=== PATIENT | male | born 1975 | race Caucasian/White ===

== ENCOUNTER 2017-08-09 08:00 | Emergency (ER) | payer OTHER ==
[2017-08-09] MEDS ORDERED: METOPROLOL TARTRATE 50 MG TABLET PO STA (08:21)
--- NOTE | 2017-08-09 08:23 | ED Physician Documentation ---
History of Present Illness - Stated complaint Stated Complaint: FAST HR - Chief complaint Chief Complaint: Cardiac - History obtained from History obtained from: Patient - History of Present Illness Timing: Today - Additonal information Additional information: The patient is a 42-year-old male who presents complaining of "racing heart" that has occurred intermittently for the past 6 days. By racing heart, he defines a rate in the 90s. It started intermittently 6 days ago, was fine during the past 2 days, but then he awoke this morning with his heart racing in the 100-120 range. He denies chest pain, lightheadedness, shortness of breath, fever, cough, nausea or vomiting. He reports having history of similar symptoms intermittently in the past, for which he has undergone full cardiac workup. He was diagnosed with generalized anxiety disorder. 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 He has been on department most of the past year. He reports being in a verbal argument with his yesterday. He admits to social alcohol use, but denies the use of other drugs. He does not take any vitamins or supplements. Review of Systems Constitutional: denies: Fever, Myalgias Ears: denies: Tinnitus/ringing Nose: denies: Congestion Throat: denies: Sore throat Cardiac: reports: Palpitations. denies: Chest pain / pressure Respiratory: denies: Dyspnea, Cough GI: denies: Abdominal Pain, Nausea, Vomiting : denies: Dysuria Skin: denies: Rash Musculoskeletal: denies: Neck pain, Back pain, Extremity swelling Neurologic: denies: Focal weakness, Numbness, Altered mental status, Headache Psychiatric: reports: Anxiety PD PAST MEDICAL HISTORY - Past Medical History Past Medical History: Yes Respiratory: None Neuro: None Endocrine/Autoimmune: None GI: Other (eosinophilic esophagitis) Psych: Anxiety Other Past Medical History: eosinophillic esophagitis, costochondritis - Past Surgical History Past Surgical History: No - Present Medications Home Medications: Ambulatory Orders Medication Instructions Recorded Confirmed Esomeprazole Magnesium [Nexium] 40 mg PO DAILY 08/09/17 08/09/17 Fexofenadine/Pseudoephedrine 1 tab PO DAILY 08/09/17 08/09/17 [Bee-D 24 Hour Tablet] Metoprolol Succinate 25 mg PO DAILY #14 tab.er.24h 08/09/17 - Allergies Allergies/Adverse Reactions: Allergies Allergy/AdvReac Type Severity Reaction Status Date / Time No Known Drug Allergies Allergy Verified 08/09/17 08:06 - Social History Does the pt smoke?: No Smoking Status: Never smoker Does the pt drink ETOH?: No Does the pt have substance abuse?: No - Immunizations Immunizations are current?: Yes PD ED PE NORMAL - Vitals Vital signs reviewed: Yes (tachycardic and hypertensive, with a pulse of 114.) - General General: Alert and oriented X 3, Well developed/nourished - HEENT HEENT: Atraumatic, EOMI, Moist mucous membranes, Pharynx benign - Neck Neck: Supple, no meningeal sign, No adenopathy, Thyroid normal, No JVD - Cardiac Cardiac: No murmur, Other (Rapid rate, regular rhythm.) - Respiratory Respiratory: No respiratory distress, Clear bilaterally - Abdomen Abdomen: Soft, Non tender, No organomegaly - Back Back: No CVA TTP - Derm Derm: No rash - Extremities Extremities: No edema, No calf tenderness / cord - Neuro Neuro: Alert and oriented X 3, No motor deficit, No sensory deficit PD ED PE EXPANDED - Psych Psych: Anxious Results - Vitals Vitals: Oxygen O2 Source Room air - EKG (time done) 08:06 Rate: Rate (enter#) (108) Rhythm: Sinus tachycardia [place]: Normal Intervals: Normal [place] QRS: Normal Ischemia: T wave inversion (Borderline T-wave flattening/inversion in inferior leads II, III, and aVF.) Compare to prior EKG: Old EKG unavailable Computer interpretation: Agree with computer - Labs Labs: Laboratory Tests 08/09/17 08/09/17 08/09/17 08:48 08:48 08:48 WBC 6.7 RBC 4.93 Hgb 14.5 Hct 42.8 MCV 86.7 MCH 29.4 MCHC 33.9 RDW 13.7 Plt Count 184 MPV 7.8 Neut # 4.5 Lymph # 1.6 [place] # 0.5 Eos # 0.1 Baso # 0.0 Absolute Nucleated RBC 0.00 Nucleated RBC % 0.1 Sodium 138 Potassium 3.9 Chloride 103 Carbon Dioxide 26 Anion Gap 9.0 BUN 13 Creatinine 1.2 Estimated GFR (MDRD) 66 L Glucose 116 H Calcium 9.5 Total Bilirubin 0.8 AST 25 ALT 27 Alkaline Phosphatase 48 Troponin I < 0.04 Total Protein 7.1 Albumin 4.4 Globulin 2.7 Albumin/Globulin Ratio 1.6 Lipase 45 TSH 08/09/17 08:48 WBC RBC Hgb Hct MCV MCH MCHC RDW Plt Count MPV Neut # Lymph # [place] # Eos # Baso # Absolute Nucleated RBC Nucleated RBC % Sodium Potassium Chloride Carbon Dioxide Anion Gap BUN Creatinine Estimated GFR (MDRD) Glucose Calcium Total Bilirubin AST ALT Alkaline Phosphatase Troponin I Total Protein Albumin Globulin Albumin/Globulin Ratio Lipase TSH 1.02 PD MEDICAL DECISION MAKING - ED course Complexity details: reviewed results, re-evaluated patient, considered differential, d/w patient ED course: The patient's presentation is most consistent with anxiety disorder with associated sinus tachycardia and hypertension. With a normal TSH, I doubt hyperthyroidism. His presentation does not suggest coronary ischemia. His electrocardiogram reveals no ischemic abnormalities, and his troponin level is normal. Treatment in the emergency department included administration of metoprolol 25 mg orally. His pulse subsequently came down to 74, with a blood pressure of 130 /90. He is being discharged with prescription for metoprolol. I discussed with him the diagnosis, treatment with beta blockers, outpatient follow-up, as well as potentially worrisome signs or symptoms that should prompt reevaluation in the emergency department. Departure - Departure Disposition: 01 Home, Self Care Clinical Impression: Sinus tachycardia, Anxiety Condition: Stable Instructions: ED Stress React Follow-Up: TOMY ZAYAS DO [Primary Care Provider] - Prescriptions: Metoprolol Succinate 25 mg PO DAILY #14 tab.er.24h Comments: Drink plenty of fluids. Take metoprolol once daily as prescribed. Minimize coffee, yomaira, or other stimulants. Follow up with your primary physician within 1 week. Call to schedule an appointment. Return to the emergency department if you develop increasing heart rate, chest pain, shortness of breath, or otherwise worsening symptoms. Discharge Date/Time: 08/09/17 10:14
[2017-08-09] MEDS ORDERED: METOPROLOL TARTRATE 25 MG TABLET ONE (08:29)
[2017-08-09 09:00] LABS: BASOPHILS % (AUTO) 0.6 %; EOSINOPHILS # (AUTO) 0.1 10^3/uL (0.0-0.7); EOSINOPHILS % (AUTO) 1.2 %; HCT - HEMATOCRIT 42.8 % (42.0-52.0); HGB - HEMOGLOBIN 14.5 g/dL (14.0-18.0); LYMPHOCYTES # (AUTO) 1.6 10^3/uL (1.5-3.5); LYMPHOCYTES % (AUTO) 23.3 %; MEAN CORPUSCULAR HEMOGLOBIN 29.4 pg (27.0-31.0); MEAN CORPUSCULAR HGB CONC 33.9 g/dL (32.0-36.0); MEAN CORPUSCULAR VOLUME 86.7 fL (80.0-94.0); MEAN PLATELET VOLUME 7.8 fL (7.4-11.4); MONOCYTES # (AUTO) 0.5 10^3/uL (0.0-1.0); MONOCYTES % (AUTO) 6.9 %; NEUTROPHILS # (AUTO) 4.5 10^3/uL (1.5-6.6); NUCLEATED RED BLOOD CELLS AUTO 0.1 /100WBC; RED BLOOD COUNT 4.93 10^6/uL (4.70-6.10); RED CELL DISTRIBUTION WIDTH 13.7 % (12.0-15.0); UNCORRECTED WHITE BLOOD COUNT 6.7 x10^3/uL; WHITE BLOOD COUNT 6.7 x10^3/uL (4.8-10.8)
[2017-08-09 09:12] LABS: ALBUMIN/GLOBULIN RATIO 1.6 (1.0-2.2); BILIRUBIN,TOTAL 0.8 mg/dL (0.2-1.0); CALCIUM 9.5 mg/dL (8.5-10.3); CREATININE 1.2 mg/dL (0.6-1.2); POTASSIUM 3.9 mmol/L (3.5-5.0); TOTAL PROTEIN 7.1 g/dL (6.7-8.2)
[2017-08-09 10:09] VITALS: BP 130/90
== END 2017-08-09 10:14 | disposition home or self-care (01) ==
LOC: ED 08:00
DX: R00.0 Tachycardia, unspecified (principal); F41.9 Anxiety disorder, unspecified
CPT/HCPCS: 36415; 80053; 83690; 84443; 84484; 85025; 93005; 99283; 99284; A9270

== ENCOUNTER 2018-07-29 10:57 | Outpatient (CLI) | payer OTHER | END 2018-07-29 10:58 | disposition home or self-care (01) | LOC: SC 10:57 | PROVIDERS: ATTEND Internal Medicine Pulmonary Disease | DX: G47.8 Other sleep disorders (principal); R06.83 Snoring | CPT/HCPCS: 99203; 99212 ==

== ENCOUNTER 2018-09-12 20:39 | Outpatient (CLI) | payer OTHER | END 2018-09-12 20:40 | disposition home or self-care (01) | LOC: SC 20:39 | PROVIDERS: ATTEND Internal Medicine Pulmonary Disease | DX: G47.33 Obstructive sleep apnea (adult) (pediatric) (principal); G47.61 Periodic limb movement disorder | CPT/HCPCS: 95810 ==